=== PATIENT | male | born 1965 | race Caucasian/White ===

== ENCOUNTER 2017-05-21 09:38 | Inpatient (IN) | payer OTHER ==
[~2017-05-21] VITALS: Ht 182.9 cm; Wt 70.3 kg
[~2017-05-21 09:38] MED LIST: BETAMETHASONE D0.05% TP; CEPHALEXIN500 M1 PO; NO HOME MEDICATIONS
[2017-05-21] MEDS ORDERED: NORCO 325 MG-51 TAB PO (10:08)
[2017-05-21 10:33] LABS: BASO % 0.4 % (0.0-2.0); EOS # 0.1 (0.0-0.7); EOS % 0.7 % (0-4.0); GRAN % 69.9 % (42.2-75.2); HEMATOCRIT 43.8 % (42.0-52.0); HEMOGLOBIN 15.2 g/dl (13.5-18.0); LYMPH # 1.5 (1.2-3.4); LYMPH % 20.5 % (20.0-51.0); MEAN CELL VOLUME 96 fl (80.0-100.0); MEAN CORPUSCULAR HEMOGLOBIN 33 pg (27.0-31.0); MEAN CORPUSCULAR HGB CONC 35 g/dl (33.0-37.0); MEAN PLATELET VOLUME 9.8 fl (7.4-10.4); MONO # 0.6 (0.1-0.6); MONO % 8.4 % (1.7-9.3); PLATELET COUNT 231 K/mm3 (130-400); RED BLOOD COUNT 4.55 M/mm3 (4.20-5.60); REDCELL DISTRIBUTION WIDTH-CV 12.8 % (11.5-14.5); WHITE BLOOD COUNT 7.1 K/mm3 (4.8-10.8)
[2017-05-21 11:25] LABS: ADJUSTED CALCIUM 8.8 mg/dL (8.4-10.2); BILIRUBIN,TOTAL 4.6 mg/dL (0.0-1.0); C-REACTIVE PROTEIN 2.2 mg/dL (0.0-0.9); CALCIUM 8.8 mg/dL (8.4-10.2); CREATININE, serum 0.7 mg/dL (0.66-1.25); POTASSIUM 4.1 mmol/L (3.4-5.0)
[2017-05-21 11:53] LABS: PH 5 (5-8); SQUAMOUS EPITHELIAL None Seen /hpf; URINE APPEARANCE Clear; URINE BACTERIA None Seen /hpf; URINE BILIRUBIN Positive (NEGATIVE); URINE BLOOD Negative (NEGATIVE); URINE COLOR Amber; URINE GLUCOSE Negative (NEGATIVE); URINE KETONE Negative (NEGATIVE); URINE RBC 0-2 /hpf; URINE UROBILINOGEN >=4.0 mg/dL (NEGATIVE); URINE WBC 0-2 /hpf
[2017-05-21 16:35] VITALS: BP 143/86; PULSE 56; TEMP 97.7
[2017-05-21 19:00] VITALS: BP 132/72; PULSE 59; TEMP 98
[2017-05-21 22:00] VITALS: BP 155/91; PULSE 58; TEMP 98.1
[2017-05-22] VITALS (10 sets, daily range): BP systolic 118–150; BP diastolic 60–82; PULSE 54–70; TEMP 98–98.7
[2017-05-22 07:36] LABS: ADD PATHOLOGY DIFF REVIEW NO
[2017-05-22 07:52] LABS: ADJUSTED CALCIUM 9.1 mg/dL (8.4-10.2); ALBUMIN 3.8 gm/dL (3.5-5.0); BILIRUBIN,TOTAL 5.6 mg/dL (0.0-1.0); CALCIUM 8.9 mg/dL (8.4-10.2); CREATININE, serum 0.78 mg/dL (0.66-1.25); POTASSIUM 3.8 mmol/L (3.4-5.0); TOTAL PROTEIN 6.8 gm/dL (6.4-8.2)
[2017-05-22 08:01] LABS: HEMATOCRIT 40.9 % (42.0-52.0); HEMOGLOBIN 13.6 g/dl (13.5-18.0); MEAN CELL VOLUME 98 fl (80.0-100.0); MEAN CORPUSCULAR HEMOGLOBIN 33 pg (27.0-31.0); MEAN CORPUSCULAR HGB CONC 33 g/dl (33.0-37.0); MEAN PLATELET VOLUME 10.2 fl (7.4-10.4); PLATELET COUNT 172 K/mm3 (130-400); RED BLOOD COUNT 4.16 M/mm3 (4.20-5.60); REDCELL DISTRIBUTION WIDTH-CV 13.1 % (11.5-14.5); WHITE BLOOD COUNT 6.7 K/mm3 (4.8-10.8)
[2017-05-22 08:38] LABS: BAND 4 % (0-10); METAMYELOCYTE 2 % (0-0); NEUTROPHILS 76 % (42.0-75.2); PLATELET ESTIMATE NORMAL (NORMAL); TOTAL CELLS COUNTED 100
[2017-05-23 06:08] VITALS: BP 118/62; PULSE 51; TEMP 98.3
[2017-05-23 08:22] VITALS: BP 158/73; PULSE 68; TEMP 97.7
[2017-05-23 10:25] VITALS: BP 127/69; PULSE 66; TEMP 97.7
== END 2017-05-23 10:50 | disposition home or self-care (01) | DRG 444 ==
LOC: COL.ER 09:38 → SURG 13:55
PROVIDERS: Emergency Medicine; Internal Medicine Cardiovascular Disease; Internal Medicine Gastroenterology
PROC: 0FB98ZX Excision of Common Bile Duct, Via Natural or Artificial Opening Endoscopic, Diagnostic (ICD-10-PCS; 2017-05-22)
PROC: 0F798DZ Dilation of Common Bile Duct with Intraluminal Device, Via Natural or Artificial Opening Endoscopic (ICD-10-PCS; principal; 2017-05-22 15:00)
DX: K81.0 Acute cholecystitis (principal); K85.90 Acute pancreatitis without necrosis or infection, unspecified; K83.1 Obstruction of bile duct; K86.0 Alcohol-induced chronic pancreatitis; F17.210 Nicotine dependence, cigarettes, uncomplicated; F10.11 Alcohol abuse, in remission
CPT/HCPCS: 99233-AI; 99239; C1769; C2625; C9113; J1170; J1650; J1956; J2704; J3010; J7030; Q9967

== ENCOUNTER 2017-07-24 08:14 | Inpatient (IN) | payer OTHER ==
[~2017-07-24] VITALS: Ht 182.9 cm; Wt 72.7 kg
[~2017-07-24 08:14] MED LIST changes: +NORCO 325 MG-51 TAB PO
[2017-07-24] MEDS ORDERED: RT ADVAIR 228 DISKUS IH (08:25)
[2017-07-24] MEDS ORDERED: VENTOLIN0.09 MG IH (08:26)
[2017-07-24 09:13] LABS: BASO % 0.1 % (0.0-2.0); EOS % 0.1 % (0-4.0); GRAN # 10.7 (1.4-6.5); GRAN % 77.7 % (42.2-75.2); HEMATOCRIT 40.5 % (42.0-52.0); HEMOGLOBIN 13.9 g/dl (13.5-18.0); LYMPH # 1.5 (1.2-3.4); LYMPH % 11.1 % (20.0-51.0); MEAN CELL VOLUME 94 fl (80.0-100.0); MEAN CORPUSCULAR HEMOGLOBIN 32 pg (27.0-31.0); MEAN CORPUSCULAR HGB CONC 34 g/dl (33.0-37.0); MEAN PLATELET VOLUME 9.7 fl (7.4-10.4); MONO # 1.5 (0.1-0.6); MONO % 10.6 % (1.7-9.3); PLATELET COUNT 160 K/mm3 (130-400); RED BLOOD COUNT 4.32 M/mm3 (4.20-5.60); WHITE BLOOD COUNT 13.8 K/mm3 (4.8-10.8)
[2017-07-24 09:28] LABS: ADJUSTED CALCIUM 9.2 mg/dL (8.4-10.2); ALBUMIN 4.1 gm/dL (3.5-5.0); CALCIUM 9.3 mg/dL (8.4-10.2); CREATININE, serum 0.85 mg/dL (0.66-1.25); POTASSIUM 3.8 mmol/L (3.4-5.0); TOTAL PROTEIN 7.7 gm/dL (6.4-8.2)
[2017-07-24 09:49] LABS: C-REACTIVE PROTEIN 23.1 mg/dL (0.0-0.9)
[2017-07-24 11:15] LABS: COLLECTION METHOD CLEAN CATCH
[2017-07-24 11:23] LABS: PH 7 (5-8); SQUAMOUS EPITHELIAL None Seen /hpf; URINE APPEARANCE Clear; URINE BACTERIA None Seen /hpf; URINE BILIRUBIN Negative (NEGATIVE); URINE BLOOD 1+ (NEGATIVE); URINE COLOR Yellow; URINE GLUCOSE Negative (NEGATIVE); URINE KETONE Negative (NEGATIVE); URINE LEUKOCYTE ESTERASE Negative (NEGATIVE); URINE PROTEIN(semi-quant) 1+ (NEGATIVE); URINE RBC 0-2 /hpf; URINE WBC 0-2 /hpf
[2017-07-24 13:51] LABS: INR 1.2 (0.8-3.0); PROTHROMBIN TIME 13.8 SECONDS (9.7-12.8)
[2017-07-24 15:24] VITALS: BP 116/62; PULSE 75; TEMP 98.4
[2017-07-24 17:25] VITALS: BP 110/61; PULSE 73; TEMP 99.5
[2017-07-24 20:21] VITALS: BP 111/61; PULSE 71; TEMP 100.7
[2017-07-24 22:38] VITALS: BP 100/62; PULSE 73; TEMP 100.5
[2017-07-25 04:46] VITALS: BP 114/57; PULSE 83; TEMP 102.6
[2017-07-25 05:35] LABS: BASO % 0.2 % (0.0-2.0); EOS % 0.1 % (0-4.0); GRAN # 8.3 (1.4-6.5); GRAN % 77.3 % (42.2-75.2); LYMPH # 1.3 (1.2-3.4); LYMPH % 12.3 % (20.0-51.0); MEAN CELL VOLUME 97 fl (80.0-100.0); MEAN CORPUSCULAR HGB CONC 34 g/dl (33.0-37.0); MEAN PLATELET VOLUME 9.8 fl (7.4-10.4); MONO % 9.7 % (1.7-9.3); PLATELET COUNT 132 K/mm3 (130-400); RED BLOOD COUNT 3.58 M/mm3 (4.20-5.60); WHITE BLOOD COUNT 10.7 K/mm3 (4.8-10.8)
[2017-07-25 05:39] LABS: HEMATOCRIT 34.6 % (42.0-52.0); HEMOGLOBIN 11.6 g/dl (13.5-18.0); MEAN CORPUSCULAR HEMOGLOBIN 32 pg (27.0-31.0)
[2017-07-25 05:45] LABS: CALCIUM 8.2 mg/dL (8.4-10.2); CREATININE, serum 0.78 mg/dL (0.66-1.25); POTASSIUM 3.6 mmol/L (3.4-5.0)
[2017-07-25 08:20] VITALS: BP 111/61; PULSE 70; TEMP 99.1
[2017-07-25 11:14] VITALS: BP 117/67; PULSE 66; TEMP 98.4
[2017-07-25 15:53] VITALS: BP 142/75; PULSE 76; TEMP 99
[2017-07-25 16:58] LABS: COLLECTION METHOD CLEAN CATCH
[2017-07-25 17:20] LABS: MUCOUS Present /lpf; PH 5 (5-8); SQUAMOUS EPITHELIAL 0-2 /hpf; URINE APPEARANCE Clear; URINE BACTERIA None Seen /hpf; URINE BILIRUBIN Negative (NEGATIVE); URINE BLOOD 1+ (NEGATIVE); URINE COLOR Amber; URINE GLUCOSE Negative (NEGATIVE); URINE KETONE 2+ (NEGATIVE); URINE LEUKOCYTE ESTERASE Negative (NEGATIVE); URINE PROTEIN(semi-quant) 1+ (NEGATIVE); URINE RBC 0-2 /hpf; URINE UROBILINOGEN >=4.0 mg/dL (NEGATIVE); URINE WBC 0-2 /hpf
[2017-07-25 19:54] VITALS: BP 136/65; PULSE 76; TEMP 99.7
[2017-07-26 00:26] VITALS: BP 128/66; PULSE 75; TEMP 100
[2017-07-26 04:32] VITALS: BP 127/70; PULSE 63; TEMP 98.4
[2017-07-26 06:48] LABS: BASO % 0.2 % (0.0-2.0); EOS % 0.1 % (0-4.0); GRAN # 5.9 (1.4-6.5); GRAN % 73.3 % (42.2-75.2); LYMPH # 1.3 (1.2-3.4); LYMPH % 15.7 % (20.0-51.0); MEAN CELL VOLUME 97 fl (80.0-100.0); MEAN CORPUSCULAR HGB CONC 34 g/dl (33.0-37.0); MEAN PLATELET VOLUME 10.1 fl (7.4-10.4); MONO # 0.8 (0.1-0.6); MONO % 10.1 % (1.7-9.3); PLATELET COUNT 157 K/mm3 (130-400); RED BLOOD COUNT 3.49 M/mm3 (4.20-5.60); WHITE BLOOD COUNT 8.1 K/mm3 (4.8-10.8)
[2017-07-26 06:55] LABS: HEMATOCRIT 33.9 % (42.0-52.0); HEMOGLOBIN 11.4 g/dl (13.5-18.0); MEAN CORPUSCULAR HEMOGLOBIN 33 pg (27.0-31.0)
[2017-07-26 06:59] LABS: CALCIUM 8.5 mg/dL (8.4-10.2); CREATININE, serum 0.7 mg/dL (0.66-1.25); POTASSIUM 3.7 mmol/L (3.4-5.0)
[2017-07-26 08:14] VITALS: BP 141/73; PULSE 65; TEMP 99
[2017-07-26 13:00] VITALS: BP 147/76; PULSE 73; TEMP 98.7
[2017-07-26] MEDS ORDERED: NORCO 325 MG-51 TAB PO (18:53)
[2017-07-26] MEDS ORDERED: LEVAQUIN 750MG750 M1 PO (18:53)
[2017-07-30 02:28] LABS: MYCOPLASMA IGG ANTIBODIES 1.28 (0.00-0.90); MYCOPLASMA IGM ANTIBODIES 0.09 (0.00-0.90)
== END 2017-07-26 20:30 | disposition home or self-care (01) | DRG 439 ==
LOC: COL.ER 08:14 → MEDICAL 10:48
PROVIDERS: Family Medicine; Physician Assistant
DX: K85.90 Acute pancreatitis without necrosis or infection, unspecified (principal); E87.1 Hypo-osmolality and hyponatremia; K86.1 Other chronic pancreatitis; J44.9 Chronic obstructive pulmonary disease, unspecified; R73.9 Hyperglycemia, unspecified; J06.9 Acute upper respiratory infection, unspecified; F17.210 Nicotine dependence, cigarettes, uncomplicated
CPT/HCPCS: 99223-AI; 99232-AI; 99233-AI; 99239; J1644; J1956; J2270; J2405; J7030; J7040; Q9967

== ENCOUNTER → 2021-02-08 | Outpatient (CLI) | payer MEDICARE, MEDICAID ==
[~2021-02-08] MED LIST changes: +LEVAQUIN 750MG750 M1 PO; +RT ADVAIR 228 DISKUS IH; +VENTOLIN0.09 MG IH
[2021-02-08 08:14] LABS: HEMATOCRIT 40.3 % (42.0-52.0); HEMOGLOBIN 13.2 g/dl (13.5-18.0); MEAN CELL VOLUME 100 fl (80.0-100.0); MEAN CORPUSCULAR HEMOGLOBIN 33 pg (27.0-31.0); MEAN CORPUSCULAR HGB CONC 33 g/dl (33.0-37.0); MEAN PLATELET VOLUME 10.2 fl (7.4-10.4); PLATELET COUNT 238 K/mm3 (130-400); RED BLOOD COUNT 4.03 M/mm3 (4.20-5.60); REDCELL DISTRIBUTION WIDTH-CV 13.2 % (11.5-14.5)
[2021-02-08 08:27] LABS: BILIRUBIN,TOTAL 0.8 mg/dL (0.0-1.0); CHOLESTEROL RISK RATIO 2.9; CREATININE, serum 0.78 (0.66-1.25); POTASSIUM 3.6 mmol/L (3.4-5.0); TOTAL PROTEIN 7.1 gm/dL (6.4-8.2)
== END ==
LOC: COL.RAD 07:35
PROVIDERS: Internal Medicine
DX: K86.1 Other chronic pancreatitis (principal); J44.9 Chronic obstructive pulmonary disease, unspecified; I86.4 Gastric varices; K83.8 Other specified diseases of biliary tract; Z96.89 Presence of other specified functional implants
CPT/HCPCS: Q9967